=== PATIENT | female | born 1990 | race Hispanic/Latino ===

== ENCOUNTER 2024-02-07 10:50 | Emergency (ER) | payer BC ==
[~2024-02-07] VITALS: Ht 165.1 cm; Wt 80.0 kg
[~2024-02-07 10:50] MED LIST: AMOXICILLIN/CL875 MG PO; BENADRYL 50MG C50 MG PO; FERROUS SULF325 M1 PO; FLONASE NASAL50 MCG; FLUZONE SPLT1 M1 IM; HYDROCORTISONE2.5 % EX; IBUPROFEN600 MG PO; IRON325 M1 PO; LORTAB 5/3255 MG PO; MIRENA IU; OBTREX DHA PO; PEPCID20 MG PO; PNV PO
[2024-02-07 10:55] VITALS: BP 131/81
[2024-02-07 11:00] VITALS: BP 117/81
[2024-02-07] MEDS ORDERED: AMOX/K CLAV875 M1 PO (11:05)
[2024-02-07 11:11] VITALS: BP 117/81
[2024-02-07] MEDS ORDERED: CHERATUSSIN PO (11:16)
[2024-02-08] MEDS ORDERED: ZPAK PO (10:37)
[2024-02-08] MEDS ORDERED: FLOXIN OTIC0.3 % AS (10:37)
[2024-02-08] MEDS ORDERED: IBUPROFEN600 MG PO (10:37)
== END 2024-02-07 11:29 | disposition home or self-care (01) | DRG 153 ==
LOC: ED 10:50
DX: H66.92 Otitis media, unspecified, left ear (principal)

== ENCOUNTER 2024-02-08 09:47 | Emergency (ER) | payer BC ==
[~2024-02-08] VITALS: Ht 165.1 cm; Wt 80.7 kg
[~2024-02-08 09:47] MED LIST changes: +AMOX/K CLAV875 M1 PO; +CHERATUSSIN PO
[2024-02-08] MEDS ORDERED: FLOXIN OTIC0.3 % AS (10:37)
[2024-02-08] MEDS ORDERED: IBUPROFEN600 MG PO (10:37)
[2024-02-08] MEDS ORDERED: ZPAK PO (10:37)
[2024-02-08 10:43] VITALS: BP 128/67
== END 2024-02-08 10:48 | disposition home or self-care (01) | DRG 153 ==
LOC: ED 09:47
DX: H66.92 Otitis media, unspecified, left ear (principal); H60.92 Unspecified otitis externa, left ear